=== PATIENT | male | born 1995 | race Caucasian/White ===

== ENCOUNTER 2019-12-03 03:03 | Emergency (ER) | payer OTHER ==
[~2019-12-03] VITALS: Ht 177.8 cm; Wt 123.0 kg
[2019-12-03 03:11] VITALS: BP 149/95
--- NOTE | 2019-12-03 03:22 | NUR ---
ASSESSMENT MADE. SEEN AND EXAMINED BY PA IN TRIAGE. PATIENT DENIES COUGH / SORE THROAT, SLIGHT SOB AND HAS BEEN SOB DUE TO HIS WEIGHT PER PATEINT OTHERWISE HEALTHY. NO CO-MORBIDITY. DISCHARGED IN TRIAGE AREA.
== END 2019-12-03 03:25 | disposition home or self-care (01) ==
LOC: ED 03:10
DX: R06.00 Dyspnea, unspecified (principal); F17.210 Nicotine dependence, cigarettes, uncomplicated
CPT/HCPCS: 99281